=== PATIENT | female | born 1925 | race Caucasian/White ===

== ENCOUNTER 2017-06-27 15:33 | Inpatient (IN) | payer OTHER ==
--- NOTE | 2017-06-27 15:47 | PDOC ---
Rapid Medical Evaluation Chief Complaint: Wound Infection Time Seen by Provider: 06/27/17 15:40 Medical Evaluation: Allergies Allergy/AdvReac Type Severity Reaction Status Date / Time Penicillins Allergy Verified 06/27/17 15:39 06/27/17 15:40 I have performed a brief in-person evaluation of this patient. The patient presents with a chief complaint of: Sent in by PMD for uti ( klebsiella pneu esbl sen to bactrim and IV abx on ucx last week per report). Daughter has report on her person. Pt asymptomatic, no dysuria, n/v/f/c or flank pain. Pertinent physical exam findings:Stable and well inés, no abd/flank tenderness I have ordered the following:nothing The patient will proceed to the ED for further evaluation.
[2017-06-27 18:19] LABS: EOS % 0.8 % (0-4.5); HEMATOCRIT 33.9 % (32.4-45.2); HEMOGLOBIN 11.2 GM/dL (10.7-15.3); LYMPH % 21.8 % (8-40); MCH 30.6 pg (25.7-33.7); MCHC 33.1 g/dl (32.0-36.0); MEAN CELL VOLUME 92.5 fl (80-96); MEAN PLT VOLUME 6.8 fl (7.5-11.1); MONO % 3.6 % (3.8-10.2); NEUT % 72.8 % (42.8-82.8); PLATELET COUNT 362 K/MM3 (134-434); RBC 3.67 M/mm3 (3.60-5.2); WHITE BLOOD COUNT 7.8 K/mm3 (4.0-10.0)
[2017-06-27 18:21] LABS: URINE APPEARANCE CLOUDY; URINE BILIRUBIN NEGATIVE (NEGATIVE); URINE BLOOD 1+ (NEGATIVE); URINE COLOR YELLOW; URINE GLUCOSE (UA) NEGATIVE (NEGATIVE); URINE KETONE NEGATIVE (NEGATIVE); URINE LEUK ESTERASE 3+ (NEGATIVE); URINE NITRITE NEGATIVE (NEGATIVE); URINE PROTEIN NEGATIVE (NEGATIVE); URINE UROBILINOGEN NEGATIVE mg/dL (0.2-1.0)
[2017-06-27 18:26] LABS: EPI CELLS RARE /HPF (FEW); URINE BACTERIA MANY /hpf (NONE SEEN); URINE HYALINE CAST 2 /lpf; URINE MUCUS RARE
--- NOTE | 2017-06-27 18:41 | PDOC ---
History of Present Illness - General History Source: Patient Exam Limitations: No Limitations - History of Present Illness Initial Comments: 06/27/17 18:46 Patient is a 89 year old female with a significant past medical history of CA ( colon), Hysterectomy, Hernia repair, Left hip fracture, who presents to the ED for advised admission by PCP. As per patient's daughter, patient was given a urine culture by her PCP earlier this week with the results coming back positive. She reports PCP advised patient to come into the ED for admission and IV antibiotics Patient's daughter states patient is drug resistant to Bactrim PO. Patient reports she has recently just moved to [place] with her daughter after living most of her life in [place]. Denies chest pain, SOB. Denies nausea, vomiting. Denies Allergies: Penicillins. Social history: Lives at home with Daughter. No smoking. No alcohol. No illicit drugs. Surgical history: Hysterectomy. PMD: Dr. Cloud <Octavio Morse - Last Filed: 06/27/17 21:03> <Gwendolyn Carballo - Last Filed: 06/28/17 00:55> - General Chief Complaint: Urinary Problem Stated Complaint: WOUND INFECTION Time Seen by Provider: 06/27/17 15:40 Past History <Octavio Morse - Last Filed: 06/27/17 21:03> - Past Medical History Cancer: Yes (colon) COPD: No Thyroid Disease: Yes - Surgical History Abdominal Surgery: Yes (colon resection, hernia) - Suicide/Smoking/Psychosocial Hx Smoking History: Never smoked Have you smoked in the past 12 months: No Information on smoking cessation initiated: No Hx Alcohol Use: No Drug/Substance Use Hx: No Substance Use Type: None <Gwendolyn Carballo - Last Filed: 06/28/17 00:55> - Past Medical History Allergies/Adverse Reactions: Allergies Allergy/AdvReac Type Severity Reaction Status Date / Time Penicillins Allergy Verified 06/27/17 15:39 Home Medications: Ambulatory Orders Atorvastatin Ca [Lipitor] 10 mg PO HS 06/27/17 Hydrocortisone [Cortef -] 5 mg PO DAILY 06/27/17 Hydrocortisone [Cortef -] 10 mg PO DAILY 06/27/17 Levothyroxine [Synthroid -] 50 mcg PO DAILY 06/27/17 Review of Systems - Review of Systems Able to Perform ROS?: Yes Comments:: 06/27/17 18:46 CONSTITUTIONAL: +Dehydrated Absent: fever, no chills, no fatigue EYES: Absent: visual changes ENT: Absent: ear pain, no sore throat CARDIOVASCULAR: Absent: chest pain, no palpitations RESPIRATORY: Absent: cough, no SOB GI: Absent: abdominal pain, no nausea, no vomiting, no constipation, no diarrhea GENITOURINARY: Absent: dysuria, no frequency, no hematuria MUSCULOSKELETAL: Absent: back pain, no arthralgia, no myalgia SKIN: Absent: rash NEURO: Absent: headache All Other Systems: Reviewed and Negative <Octavio Morse - Last Filed: 06/27/17 21:03> *Physical Exam - Vital Signs Last Vital Signs Temp Pulse Resp BP Pulse Ox 98.9 F 88 18 145/61 100 06/27/17 15:40 06/27/17 15:40 06/27/17 15:40 06/27/17 15:40 06/27/17 15:40 - Physical Exam Comments: 06/27/17 18:46 GENERAL: +Petite. +Dehydrated. +Macanese speaking. Well-appearing, well-nourished. No apparent distress. HEENT: Normocephalic, atraumatic. PERRL, EOM intact. CARDIOVASCULAR: Normal S1, S2. Regular rate and rhythm. PULMONARY: Clear to auscultation bilaterally. ABDOMEN: Soft, non-distended, non-tender. EXTREMITIES: Normal ROM in all four extremities. No gross deformities. SKIN: Warm, dry. No rash NEUROLOGICAL: No focal neurological deficits. <Octavio Morse - Last Filed: 06/27/17 21:03> - Vital Signs Last Vital Signs Temp Pulse Resp BP Pulse Ox 98.9 F 88 18 145/61 100 06/27/17 15:40 06/27/17 15:40 06/27/17 15:40 06/27/17 15:40 06/27/17 15:40 <Gwendolyn Carballo - Last Filed: 06/28/17 00:55> Heart Score/ECG Review - ECG Intrepretation Comment:: 06/27/17 21:04 Completed at 20:45:08 Vent. rate 80 BPM Normal Sinus Rhythm Normal ECG <Octavio Morse - Last Filed: 06/27/17 21:03> ED Treatment Course - LABORATORY CBC & Chemistry Diagram: 06/27/17 18:06 06/27/17 18:06 - ADDITIONAL ORDERS Additional order review: Laboratory Results 06/27/17 18:06 Urine Color Yellow Urine Appearance Cloudy Urine pH 5.0 Ur Specific [place] 1.012 Urine Protein Negative Urine Glucose (UA) Negative Urine Ketones Negative Urine Blood 1+ H Urine Nitrite Negative Urine Bilirubin Negative Urine Urobilinogen Negative Urine WBC (Auto) 351 Urine RBC (Auto) 16 Ur Epithelial Cells Rare Urine Bacteria Many Hyaline Casts 2 Urine Mucus Rare 06/27/17 18:06 RBC 3.67 MCV 92.5 MCHC 33.1 RDW 18.0 H MPV 6.8 L Neutrophils % 72.8 Lymphocytes % 21.8 Monocytes % 3.6 L Eosinophils % 0.8 Basophils % 1.0 <Octavio Morse - Last Filed: 06/27/17 21:03> - LABORATORY CBC & Chemistry Diagram: 06/27/17 18:06 06/27/17 18:06 - ADDITIONAL ORDERS Additional order review: Laboratory Results 06/27/17 18:06 Urine Color Yellow Urine Appearance Cloudy Urine pH 5.0 Ur Specific [place] 1.012 Urine Protein Negative Urine Glucose (UA) Negative Urine Ketones Negative Urine Blood 1+ H Urine Nitrite Negative Urine Bilirubin Negative Urine Urobilinogen Negative Urine WBC (Auto) 351 Urine RBC (Auto) 16 Ur Epithelial Cells Rare Urine Bacteria Many Hyaline Casts 2 Urine Mucus Rare 06/27/17 18:06 RBC 3.67 MCV 92.5 MCHC 33.1 RDW 18.0 H MPV 6.8 L Neutrophils % 72.8 Lymphocytes % 21.8 Monocytes % 3.6 L Eosinophils % 0.8 Basophils % 1.0 <Gwendolyn Carballo - Last Filed: 06/28/17 00:55> Medical Decision Making - Medical Decision Making 06/28/17 00:53 89-year-old female with past medical history of recurrent UTIs was referred to the ER by her at Dr. Fouzia Boyce. He had done a urine urinalysis in the office and the urine culture shows that she is ESBL web producer and only sensitive to gentamicin Therefore, the patient was admitted for IV antibiotics Patient is alert, stable patient. Presents with family members. This is her first admission as [facility]. She has had several hospitalizations last year at [facility] for recurrent UTIs Her exam was essentially unremarkable. Urinalysis shows WBCs in her urine, greater than 300,000, and she was started on gentamicin and admitted to [facility] <Gwendolyn Carballo - Last Filed: 06/28/17 00:55> *DC/Admit/Observation/Transfer - Attestations Scribe Attestion: 06/27/17 18:47 Documentation prepared by Octavio Morse, acting as medical office administrator for Gwendolyn Carballo MD/DO. <Octavio Morse - Last Filed: 06/27/17 21:03> - Discharge Dispostion Admit: Yes <Gwendolyn Carballo - Last Filed: 06/28/17 00:55> Diagnosis at time of Disposition: ESBL (extended spectrum beta-lactamase) producing bacteria infection
[2017-06-27 18:55] LABS: ALBUMIN 2.9 g/dl (3.4-5.0); ALK PHOS 141 U/L (45-117); ANION GAP 8 (8-16); BILIRUBIN,TOTAL 0.2 mg/dL (0.2-1.0); BLOOD UREA NITROGEN 31 mg/dL (7-18); CALCIUM 8.9 mg/dL (8.5-10.1); CHLORIDE 97 mmol/L (98-107); CO2 27 mmol/L (21-32); CREATININE 1.1 mg/dL (0.55-1.02); GLUCOSE,RANDOM 132 mg/dL (74-106); SGOT/AST 34 U/L (15-37); SGPT/ALT 57 U/L (12-78); SODIUM 132 mmol/L (136-145); TOT PROT 6.2 g/dl (6.4-8.2)
[2017-06-27] MEDS ORDERED: GENTAMICIN IVPB STA (18:56)
[2017-06-27] MEDS ORDERED: DEXTROSE 5% IVPB STA (18:56)
[2017-06-27] MEDS ORDERED: WATER IVPB STA (18:56)
[2017-06-27] MEDS ORDERED: GENTAMICIN SO4 80 MG/2 ML VIAL ONE (20:21)
[2017-06-27] MEDS: SODIUM CHLORIDE 1,000 ML IV SCH (20:31)
--- NOTE | 2017-06-27 21:32 | HP ---
CHIEF COMPLAINT: ESBL UTI PCP: Ai HISTORY OF PRESENT ILLNESS: This is an 89 year old female with a past medical history of colon CA s/p partial colectomy, HLD, Hypothyroid, ?adrenal insufficiency who was sent to the ED by her PCP for admission for ESBL UTI. Her urine culture from 06/22 had Klebsiella, resistant to all but tetracycline and gentamycin. Her urine culture on 06/05 was sensitive to bactrim as well, but it is now resistant to bactrim. Pt has no complaints. She states that she is feeling better and denies any urinary symptoms. She was hospitalized at [facility] from March to April for UTI and she was very confused and altered. Since her return home in mid April her mental status has improved significantly. ER course was notable for: (1) WBC 7.8 (2) U/A c/w UTI Recent Travel: family denies PAST MEDICAL HISTORY: colon CA HLD hypothyroid adrenal insufficiency? PAST SURGICAL HISTORY: partial colectomy 2003 hernia repair L hip ORIF hysterectomy Social History: Smoking: family denies Alcohol: family denies Drugs: family denies Family History: mother in her 80s, had a "stomach thrombosis" father 70s, CVA brother in his 70s, [place] sister in her 40s, asthma one son with DM Allergies Penicillins Allergy (Verified 06/27/17 15:39) HOME MEDICATIONS: 3 Medication Instructions Recorded Atorvastatin Ca [Lipitor] 10 mg PO HS 06/27/17 Hydrocortisone [Cortef -] 5 mg PO DAILY 06/27/17 Hydrocortisone [Cortef -] 10 mg PO DAILY 06/27/17 Levothyroxine [Synthroid -] 50 mcg PO DAILY 06/27/17 REVIEW OF SYSTEMS CONSTITUTIONAL: Absent: fever, chills, diaphoresis, generalized weakness, malaise, loss of appetite, weight change HEENT: Absent: rhinorrhea, nasal congestion, throat pain, throat swelling, difficulty swallowing, mouth swelling, ear pain, eye pain, visual changes CARDIOVASCULAR: Absent: chest pain, syncope, palpitations, irregular heart rate, lightheadedness , peripheral edema RESPIRATORY: Absent: cough, shortness of breath, dyspnea with exertion, orthopnea, wheezing, stridor, hemoptysis GASTROINTESTINAL: Absent: abdominal pain, abdominal distension, nausea, vomiting, diarrhea, constipation, melena, hematochezia GENITOURINARY: Absent: dysuria, frequency, urgency, hesitancy, hematuria, flank pain, genital pain MUSCULOSKELETAL: Absent: myalgia, arthralgia, joint swelling, back pain, neck pain SKIN: Absent: rash, itching, pallor HEMATOLOGIC/IMMUNOLOGIC: Absent: easy bleeding, easy bruising, lymphadenopathy, frequent infections ENDOCRINE: Absent: unexplained weight gain, unexplained weight loss, heat intolerance, cold intolerance NEUROLOGIC: Absent: headache, focal weakness or paresthesias, dizziness, unsteady gait, seizure, mental status changes, bladder or bowel incontinence PSYCHIATRIC: Absent: anxiety, depression, suicidal or homicidal ideation, hallucinations. PHYSICAL EXAMINATION Vital Signs - 24 hr 3 06/27/17 06/27/17 15:40 20:57 Temperature 98.9 F 97.8 F Pulse Rate 88 Pulse Rate [ 80 Apical] Respiratory 18 16 Rate Blood Pressure 145/61 Blood Pressure 108/64 [Right Arm] O2 Sat by Pulse 100 Oximetry (%) GENERAL: Awake, alert, and fully oriented, in no acute distress. HEAD: Normal with no signs of trauma. EYES: Pupils equal, round and reactive to light, extraocular movements intact, sclera anicteric, conjunctiva clear. No lid lag. EARS, NOSE, THROAT: Ears normal, nares patent, oropharynx clear without exudates. Moist mucous membranes. NECK: Normal range of motion, supple without lymphadenopathy, JVD, or masses. LUNGS: Breath sounds equal, clear to auscultation bilaterally. No wheezes, and no crackles. No accessory muscle use. HEART: Regular rate and rhythm, normal S1 and S2 without murmur, rub or gallop. ABDOMEN: Soft, nontender, not distended, normoactive bowel sounds, no guarding, no rebound, no masses. No hepatomegaly or splenomegaly. MUSCULOSKELETAL: Normal range of motion at all joints. No bony deformities or tenderness. No CVA tenderness. UPPER EXTREMITIES: 2+ pulses, warm, well-perfused. No cyanosis. No clubbing. No peripheral edema. LOWER EXTREMITIES: 2+ pulses, warm, well-perfused. No calf tenderness. No peripheral edema. NEUROLOGICAL: Cranial nerves II-XII intact. Normal speech. Normal gait. PSYCHIATRIC: Cooperative. Good eye contact. Appropriate mood and affect. SKIN: Warm, dry, normal turgor, no rashes or lesions noted, normal capillary refill. Laboratory Results - last 24 hr 3 06/27/17 06/27/17 06/27/17 18:06 18:06 18:06 WBC 7.8 RBC 3.67 Hgb 11.2 Hct 33.9 MCV 92.5 MCH 30.6 MCHC 33.1 RDW 18.0 H Plt Count 362 MPV 6.8 L Neutrophils % 72.8 Lymphocytes % 21.8 Monocytes % 3.6 L Eosinophils % 0.8 Basophils % 1.0 Sodium 132 L Potassium 5.0 Chloride 97 L Carbon Dioxide 27 Anion Gap 8 BUN 31 H Creatinine 1.1 H Creat Clearance w eGFR 46.77 Random Glucose 132 H Calcium 8.9 Total Bilirubin 0.2 AST 34 ALT 57 Alkaline Phosphatase 141 H Total Protein 6.2 L Albumin 2.9 L Urine Color Yellow Urine Appearance Cloudy Urine pH 5.0 Ur Specific [place] 1.012 Urine Protein Negative Urine Glucose (UA) Negative Urine Ketones Negative Urine Blood 1+ H Urine Nitrite Negative Urine Bilirubin Negative Urine Urobilinogen Negative Urine WBC (Auto) 351 Urine RBC (Auto) 16 Ur Epithelial Cells Rare Urine Bacteria Many Hyaline Casts 2 Urine Mucus Rare ECG NSR vent rate 80, QTC [address]/T changes CXR no obvious infiltrates or effusions, read by me. Official read pending ASSESSMENT/PLAN: 89yF with PMH Colon CA, hypothyroid, HLD, adrenal insufficiency?, hyponatremia presented with ESBL UTI. ESBL UTI - tx with gentamicin in the ED, cont q8h - id consult - consider home infusion with extended interval dosing Hypothyroid - cont home meds Adrenal insufficiency - cont home cortef DVT PPX - heparin 5000u bid FEN - tolerating po - BMP in am - regular diet as tolerated Dispo: pt currently requires inpatient management of her UTI. Visit type - Emergency Visit Emergency Visit: Yes ED Registration Date: 06/27/17 Care time: The patient presented to the Emergency Department on the above date and was hospitalized for further evaluation of their emergent condition. - New Patient This patient is new to me today: Yes Date on this admission: 06/27/17 - Critical Care Critical Care patient: No
[2017-06-28 05:10] VITALS: BMI 22.1
[2017-06-28] MEDS: SODIUM CHLORIDE 1,000 ML IV SCH ×2 (06:30→21:29)
[2017-06-28 08:21] LABS: BASO % 0.8 % (0-2.0); HEMATOCRIT 33.5 % (32.4-45.2); LYMPH % 31.7 % (8-40); MCH 30.3 pg (25.7-33.7); MCHC 32.9 g/dl (32.0-36.0); MEAN CELL VOLUME 92.1 fl (80-96); MEAN PLT VOLUME 6.8 fl (7.5-11.1); MONO % 4.8 % (3.8-10.2); NEUT % 59.7 % (42.8-82.8); PLATELET COUNT 360 K/MM3 (134-434); RBC 3.63 M/mm3 (3.60-5.2); WHITE BLOOD COUNT 8.4 K/mm3 (4.0-10.0)
[2017-06-28 08:34] LABS: ANION GAP 8 (8-16); BLOOD UREA NITROGEN 29 mg/dL (7-18); CALCIUM 8.2 mg/dL (8.5-10.1); CHLORIDE 101 mmol/L (98-107); CO2 25 mmol/L (21-32); CREATININE 0.9 mg/dL (0.55-1.02); GLUCOSE,RANDOM 85 mg/dL (74-106); MAGNESIUM 2.3 mg/dL (1.8-2.4); PHOSPHOROUS 3.5 mg/dL (2.5-4.9); POTASSIUM 4.5 mmol/L (3.5-5.1); SODIUM 134 mmol/L (136-145)
--- NOTE | 2017-06-28 09:09 | EKG ---
Test Reason : Blood Pressure : / mmHG Vent. Rate : 080 BPM Atrial Rate : 080 BPM P-R Int : 180 ms QRS Dur : 078 ms QT Int : 388 ms P-R-T Axes : 063 -08 076 degrees QTc Int : 447 ms NORMAL SINUS RHYTHM NORMAL ECG NO PREVIOUS ECGS AVAILABLE Confirmed by MD Dolly, Marino ([id number]) on 06/28/2017 9:09:22 AM Referred By: Confirmed By:Marino Alberto MD
[2017-06-28] MEDS ORDERED: PT OWN MED DRAWER 7, Y5N ONE ×2 (09:11→17:58)
--- NOTE | 2017-06-28 10:26 | PN ---
Progress Note, Physician Chief Complaint: AWAKE ALERT FAMILY BEDSIDE CHARTS AND RECORDS REVIEWED - Current Medication List Current Medications: Active Medications Heparin Sodium (Porcine) (Heparin -) 5,000 unit SQ BID ADWOA Sodium Chloride (Normal Saline -) 1,000 mls @ 100 mls/hr IV ASDIR [facility]WO[facility] Last Admin: 06/28/17 06:30 Dose: 100 mls/hr - Objective Vital Signs: Vital Signs Temperature 97.6 F 06/28/17 04:30 Pulse Rate 79 06/28/17 04:30 Respiratory Rate 20 06/28/17 04:30 Blood Pressure 147/63 06/28/17 04:30 O2 Sat by Pulse Oximetry (%) 96 06/28/17 04:30 Constitutional: Yes: Mild Distress Eyes: Yes: WNL HENT: Yes: WNL Neck: Yes: WNL Cardiovascular: Yes: WNL Respiratory: Yes: WNL Gastrointestinal: Yes: WNL Genitourinary: Yes: Incontinence Musculoskeletal: Yes: WNL Extremities: Yes: WNL Edema: No Peripheral Pulses WNL: Yes Integumentary: Yes: WNL Wound/Incision: Yes: Clean/Dry Neurological: Yes: WNL ...Motor Strength: WNL Psychiatric: Yes: WNL Labs: CBC, BMP 06/28/17 06:00 06/28/17 06:00 Problem List - Problems (1) ESBL (extended spectrum beta-lactamase) producing bacteria infection Code(s): A49.9 - BACTERIAL INFECTION, UNSPECIFIED; Z16.12 - EXTENDED SPECTRUM BETA LACTAMASE (ESBL) RESISTANCE Assessment/Plan FAILED ON PO ABX IV ABX CONTACT PRECAUTIONS PT EVAL DVT PROPHYLAXIS
[2017-06-28] MEDS: HEPARIN NA (PORCINE) 5,000 UNITS/ML 1ML VIAL SQ SCH ×2 (10:53→23:10)
--- NOTE | 2017-06-28 11:20 | PN ---
Progress Note (short form) - Note Progress Note: ID consult dictated 89 year old female admitted with abnormal urine culture from PMD office she is alert- feels well, no abdominal pain, no dysuria, no nausea or vomiting has a good appetite no fevers or chills history via german speaking interpretor she has a history of admission to [facility] in April- symptomatic UTI at that time with altared mental status recent bactrim use now with MDR urine culture I suspect this is asymptomatic bacteriuria but given her steroid use/adrenal insufficiency will treat short term with Gentamicin for 3 days now day #2 continue iv hydration thanks d/w Dr Navarro Problem List - Problems (1) Asymptomatic bacteriuria Code(s): R82.71 - BACTERIURIA
[2017-06-28] MEDS: WATER IVPB SCH (13:14)
[2017-06-28] MEDS: DEXTROSE 5% IVPB SCH (13:14)
[2017-06-28] MEDS: GENTAMICIN IVPB SCH (13:14)
--- NOTE | 2017-06-28 19:20 | CONS ---
DATE OF CONSULTATION: DATE OF DICTATION: 06/28/2017 INFECTIOUS DISEASE CONSULTATION REQUESTING PHYSICIAN: Jack Navarro M.D. CONSULTING PHYSICIAN: Monique Gudino M.D. HISTORY OF PRESENT ILLNESS: This is an 89-year-old woman admitted yesterday because she was sent to the emergency room by her PMD for resistant urinary tract infection. She has a history of colon cancer in the past, was recently treated for a klebsiella UTI sensitive to Bactrim. The culture was repeated, and now apparently sensitive only to gentamicin and tetracycline. She is referred to the ER. She has a history of being hospitalized at [facility] in March for UTI, at that time she was very confused. Currently she is quite alert and has had no problems. I spoke to her via shopper marketing manager. She is feeling well. She has no fevers, chills. She has no nausea, vomiting, diarrhea, dysuria. She has no flank pain or abdominal pain. In the emergency room, her white count was 7.8. Her urinalysis was notable for 3+ leukocyte esterase and 351 white cells. She was given a dose of gentamicin based on her prior cultures. ALLERGIES: She is allergic to PENICILLIN. PAST MEDICAL HISTORY: Notable for colon cancer, hyperlipidemia, hypothyroidism. There is a question of adrenal insufficiency. PAST SURGICAL HISTORY: Notable for partial colectomy 2002, hernia repair left hip ORIF and hysterectomy. SOCIAL HISTORY: There is no history of cigarette, alcohol, or substance use. FAMILY HISTORY: Notable for coronary artery disease, notable for asthma. She has son with diabetes. MEDICATION: Her medications at home include atorvastatin, and hydrocortisone by mouth, as well as levothyroxine. REVIEW OF SYSTEMS: Negative. At her bedside, a family member reports she is at her baseline mental status and is quite alert at home. She apparently uses a wheelchair. PHYSICAL EXAMINATION: Vital signs: She has been afebrile. Temperature 98.4, pulse 84, blood pressure 116/72, respiratory rate 16, she is saturating 96% on room air. HEENT: Normocephalic. Eyes are anicteric. Neck: Supple. Lungs: Clear to auscultation. Heart: Regular rate and rhythm. Abdomen: Soft. She has no suprapubic or CVA tenderness. Extremities: Without edema. LABORATORY: White count is 7.8, hemoglobin 11.2, platelets 362. BUN and creatinine yesterday were 31 and 1.1, today 29 and 0.9. Urinalysis showed 3+ leukocytes with 151 white cells. Urine culture is pending but was noted in her chart from her outpatient doctor. IMPRESSION: In summary, this is an 89-year-old woman, prior history of urosepsis who currently is doing quite well, now with a multidrug resistant urine culture. I suspect this is a symptomatic bacteruria, but given the question of adrenal insufficiency and steroid use, will treat her short-term with gentamicin for 3 doses. Today is day 2, give her a dose tomorrow and discharge her. This was discussed with Dr. Navarro. Nanette [id number]
[2017-06-28] MEDS ORDERED: HYDROCORTISONE 5 MG TABLET PO ONE (21:52)
[2017-06-29] MEDS: SODIUM CHLORIDE 1,000 ML IV SCH ×2 (04:50→22:02)
[2017-06-29] MEDS: LEVOTHYROXINE NA 50 MCG TABLET (FP) PO SCH (06:16)
--- NOTE | 2017-06-29 09:14 | PN ---
Progress Note, Physician Chief Complaint: ID Seen by Dr Gudino Offered short course of antibiotics Gentamicin - Current Medication List Current Medications: Active Medications Aspirin (Asa -) 81 mg PO DAILY [facility] Atorvastatin Calcium (Lipitor -) 10 mg PO DAILY [facility] Heparin Sodium (Porcine) (Heparin -) 5,000 unit SQ BID [facility] Last Admin: 06/28/17 23:10 Dose: 5,000 unit Hydrocortisone (Cortef -) 5 mg PO DAILY@1800 [facility] Hydrocortisone (Cortef -) 10 mg PO DAILY [facility] Sodium Chloride (Normal Saline -) 1,000 mls @ 100 mls/hr IV ASDIR [facility] Last Admin: 06/29/17 04:50 Dose: 100 mls/hr Gentamicin Sulfate 60 mg/ (Dextrose) 251.5 mls @ 250 mls/hr IVPB DAILY [facility] Last Admin: 06/28/17 13:14 Dose: 250 mls/hr Lactobacillus Acidophilus (Bacid -) 1 tab PO DAILY [facility] Levothyroxine Sodium (Synthroid -) 50 mcg PO DAILY@0700 [facility] Last Admin: 06/29/17 06:16 Dose: 50 mcg - Objective Vital Signs: Vital Signs Temperature 98.7 F 06/29/17 06:00 Pulse Rate 82 06/29/17 06:00 Respiratory Rate 18 06/29/17 06:00 Blood Pressure 118/56 06/29/17 06:00 O2 Sat by Pulse Oximetry (%) 93 L 06/28/17 21:00 Constitutional: Yes: Well Nourished, No Distress Neck: Yes: WNL, Supple Cardiovascular: Yes: S1, S2 Respiratory: Yes: WNL, Regular, CTA Bilaterally Gastrointestinal: Yes: WNL, Normal Bowel Sounds, Soft. No: Tenderness Labs: CBC, BMP 06/28/17 06:00 06/28/17 06:00 Assessment/Plan Microbiology 06/27/17 18:06 Urine - Urine - Catheterized Urine Culture - Preliminary Lactose Fermenting Neg Bacilli Laboratory Tests 06/27/17 06/28/17 06/28/17 18:06 06:00 06:00 WBC 8.4 Hgb 11.0 Plt Count 360 BUN 29 H Creatinine 0.9 Ur Leukocyte Esterase 3+ H Urine RBC (Auto) 16 Assessment Gram neg UTI Plan Continue Gentamicin complete today Yesenia REID
[2017-06-29] MEDS: ASPIRIN 81 MG CHEWABLE TABLETS PO SCH (12:46)
[2017-06-29] MEDS: LACTOBACILLUS ACIDOPHILUS 1 EACH TAB (FP) PO SCH (12:46)
[2017-06-29] MEDS: ATORVASTATIN CA 10 MG TABLET (FP) PO SCH (12:46)
[2017-06-29] MEDS: DEXTROSE 5% IVPB SCH (12:47)
[2017-06-29] MEDS: GENTAMICIN IVPB SCH (12:47)
[2017-06-29] MEDS: HYDROCORTISONE 10 MG TABLET PO SCH (12:47)
[2017-06-29] MEDS: WATER IVPB SCH (12:47)
[2017-06-29] MEDS: HEPARIN NA (PORCINE) 5,000 UNITS/ML 1ML VIAL SQ SCH ×2 (12:47→22:02)
[2017-06-29] MEDS ORDERED: PT OWN MED DRAWER 7, Y5N ONE (17:07)
[2017-06-29] MEDS ORDERED: HYDROCORTISONE 5 MG TABLET PO SCH (18:00)
--- NOTE | 2017-06-29 18:02 | PN ---
Physical Exam: SUBJECTIVE: Patient seen and examined in bed. OBJECTIVE: Vital Signs Period Temp Pulse Resp BP Sys/Angeles Pulse Ox Last 24 Hr 98.6 F-98.9 F 78-93 16-20 112-140/54-76 93-96 GENERAL: The patient is awake, alert, and fully oriented, in no acute distress. LUNGS: Breath sounds equal, clear to auscultation bilaterally. HEART: Regular rate and rhythm, S1, S2 without murmur, rub or gallop. ABDOMEN: SNTND NEUROLOGICAL: Cranial nerves II through XII grossly intact. Active Medications Generic Name Dose Route Start Last Admin Trade Name Freq PRN Reason Stop Dose Admin Aspirin 81 mg 06/29/17 10:00 06/29/17 12:46 Asa - PO 81 mg DAILY [facility] Administration Atorvastatin Calcium 10 mg 06/29/17 10:00 06/29/17 12:46 Lipitor - PO 10 mg DAILY [facility] Administration Heparin Sodium (Porcine) 5,000 unit 06/28/17 10:00 06/29/17 12:47 Heparin - SQ 5,000 unit BID [facility]WO[facility] Administration Hydrocortisone 5 mg 06/29/17 18:00 Cortef - PO DAILY@1800 [facility] Hydrocortisone 10 mg 06/29/17 10:00 06/29/17 12:47 Cortef - PO 10 mg DAILY [facility] Administration Sodium Chloride 1,000 mls @ 100 mls/hr 06/27/17 19:00 06/29/17 04:50 Normal Saline - IV 100 mls/hr ASDIR [facility] Administration Gentamicin Sulfate 60 mg/ 251.5 mls @ 250 mls/hr 06/28/17 11:30 06/29/17 12: 47 Dextrose IVPB 250 mls/hr DAILY [facility] Administration Lactobacillus Acidophilus 1 tab 06/29/17 10:00 06/29/17 12:46 Bacid - PO 1 tab DAILY [facility] Administration Levothyroxine Sodium 50 mcg 06/29/17 07:00 06/29/17 06:16 Synthroid - PO 50 mcg DAILY@0700 [facility] Administration ASSESSMENT/PLAN: A: 89yo F with PMH Colon CA, hypothyroid, HLD, adrenal insufficiency?, hyponatremia presented with ESBL UTI. ESBL UTI - tx with gentamicin completed today - id following Hypothyroid - cont home meds Adrenal insufficiency - cont home cortef FEN - tolerating po - BMP in am - regular diet as tolerated PPX - SQH Dispo- Likely d/c in AM. Visit type - Emergency Visit Emergency Visit: Yes ED Registration Date: 06/27/17 Care time: The patient presented to the Emergency Department on the above date and was hospitalized for further evaluation of their emergent condition. - New Patient This patient is new to me today: Yes Date on this admission: 06/29/17 - Critical Care Critical Care patient: No
[2017-06-30] MEDS: LEVOTHYROXINE NA 50 MCG TABLET (FP) PO SCH (06:33)
[2017-06-30] MEDS ORDERED: PT OWN MED DRAWER 7, Y5N ONE (09:19)
[2017-06-30] MEDS: ASPIRIN 81 MG CHEWABLE TABLETS PO SCH (09:28)
[2017-06-30] MEDS: LACTOBACILLUS ACIDOPHILUS 1 EACH TAB (FP) PO SCH (09:28)
[2017-06-30] MEDS: HEPARIN NA (PORCINE) 5,000 UNITS/ML 1ML VIAL SQ SCH (09:29)
[2017-06-30] MEDS: ATORVASTATIN CA 10 MG TABLET (FP) PO SCH (09:29)
[2017-06-30] MEDS: SODIUM CHLORIDE 1,000 ML IV SCH (09:29)
[2017-06-30] MEDS: HYDROCORTISONE 10 MG TABLET PO SCH (09:29)
--- NOTE | 2017-06-30 12:02 | DS ---
Physical Examination Vital Signs: Vital Signs Temperature 98 F 06/30/17 06:00 Pulse Rate 76 06/30/17 06:00 Respiratory Rate 20 06/30/17 06:00 Blood Pressure 161/62 06/30/17 06:00 O2 Sat by Pulse Oximetry (%) 97 06/29/17 21:00 Constitutional: Yes: No Distress Eyes: Yes: WNL HENT: Yes: WNL Neck: Yes: WNL Cardiovascular: Yes: WNL Respiratory: Yes: WNL Gastrointestinal: Yes: WNL Renal/: Yes: WNL Musculoskeletal: Yes: WNL Extremities: Yes: WNL Edema: No Peripheral Pulses WNL: Yes Integumentary: Yes: WNL Wound/Incision: Yes: Clean/Dry Neurological: Yes: WNL ...Motor Strength: WNL Psychiatric: Yes: WNL Labs: CBC, BMP 06/28/17 06:00 06/28/17 06:00 Discharge Summary Reason For Visit: INFECTION DUE TO EXTENDED SPECTRUM BETA- LACTAMASE Current Active Problems Asymptomatic bacteriuria (Acute) ESBL (extended spectrum beta-lactamase) producing bacteria infection (Acute) Procedures: Principal: labs/xrays Hospital Course: admitted esbl resistent to po abx, iv gentamycin for 3 days, now discharged Condition: Improved - Instructions Diet, Activity, Other Instructions: low salt see dr cloud today Referrals: Davey Cloud MD [Primary Care Provider] - Disposition: [facility]/HOME HEALTH CARE - Home Medications Comprehensive Discharge Medication List: Ambulatory Orders Atorvastatin Ca [Lipitor] 10 mg PO DAILY 06/27/17 Hydrocortisone [Cortef -] 5 mg PO DAILY 06/27/17 Hydrocortisone [Cortef -] 10 mg PO DAILY 06/27/17 Levothyroxine [Synthroid -] 50 mcg PO DAILY 06/27/17 Aspirin [Ayde Chewable] 81 mg PO DAILY 06/28/17 L.acidoph,Paracasei, B.lactis [Probiotic] 1 each PO DAILY 06/28/17
[2017-06-30 12:19] VITALS: BP 150/64; PULSE 80; TEMP 98.3
== END 2017-06-30 13:41 | disposition home health service (06) | DRG 690 ==
LOC: JER 15:33 → JERBED 19:01 → J8W 06-28 04:16
PROVIDERS: ADMIT Internal Medicine; ATTEND Family Medicine
DX: N39.0 Urinary tract infection, site not specified (principal); E27.40 Unspecified adrenocortical insufficiency; E87.1 Hypo-osmolality and hyponatremia; Z16.12 Extended spectrum beta lactamase (ESBL) resistance; E86.0 Dehydration; B96.1 Klebsiella pneumoniae [K. pneumoniae] as the cause of diseases classified elsewhere; Z85.038 Personal history of other malignant neoplasm of large intestine; Z90.710 Acquired absence of both cervix and uterus; Z90.49 Acquired absence of other specified parts of digestive tract; E78.5 Hyperlipidemia, unspecified; R32 Unspecified urinary incontinence
CPT/HCPCS: 36415; 71045-TC; 80048; 80053; 81003; 81015; 83735; 84100; 85025; 87086; 87186; 93005; 93010; 97116-GP; 97161-GP; 99283-25; J1644